=== PATIENT | female | born 1955 | race Caucasian/White ===

== ENCOUNTER 2019-09-01 08:39 | Day surgery (SDC) | payer MEDICARE ==
[~2019-09-01] VITALS: Ht 165.1 cm; Wt 71.9 kg
[~2019-09-01 08:39] MED LIST: IBUP200 PO; TIZA4 PO; TRAM50 PO
== END 2019-09-01 10:32 | disposition home or self-care (01) ==
LOC: ORSCSDS 08:39
PROVIDERS: Internal Medicine Gastroenterology
PROC: 0DJD8ZZ Inspection of Lower Intestinal Tract, Via Natural or Artificial Opening Endoscopic (ICD-10-PCS; principal; 2019-09-01 10:00)
DX: Z12.11 Encounter for screening for malignant neoplasm of colon (principal); K57.30 Diverticulosis of large intestine without perforation or abscess without bleeding; K64.8 Other hemorrhoids; Z87.891 Personal history of nicotine dependence
CPT/HCPCS: J2704; J7120

== ENCOUNTER → 2022-05-21 | Outpatient (CLI) | payer MEDICARE ==
[~2022-05-21] MED LIST changes: +ACET325 PO; +FISH OIL 1,2001 EAC7 PO; +HYDR1TAB94 PO; +NAPR220 PO; +ONDA4ODT MM
[2022-05-21 16:51] LABS: Albumin/Globulin Ratio 1.4 (0.8-1.8); Bilirubin, Total 0.3 mg/dL (0.1-1.0); Bun/Creatinine Ratio 22.7 (12.0-20.0); Calcium, Blood 9.4 mg/dL (8.5-10.1); Creatinine, Blood 0.88 mg/dL (0.40-1.00); Globulin, Blood 2.8 g/dL (2.2-4.0); Potassium, Blood 4.1 mmol/L (3.5-5.5); Total Protein, Blood 6.8 g/dL (6.4-8.2)
== END | disposition home or self-care (01) ==
LOC: LAB 12:00 → LAB SHORT 12:00
PROVIDERS: Hospitalist
DX: R00.1 Bradycardia, unspecified (principal)
CPT/HCPCS: 80053

== ENCOUNTER → 2024-09-08 | Outpatient (CLI) | payer MEDICARE | END | disposition home or self-care (01) | LOC: LAB 13:37 → LAB SHORT 13:37 | DX: R35.0 Frequency of micturition (principal) | CPT/HCPCS: 87077; 87086; 87186 ==

== ENCOUNTER → 2025-03-23 | Outpatient (CLI) | payer MEDICARE ==
[2025-03-23 17:02] LABS: Anion Gap 4 mmol/L (3-11); Blood Urea Nitrogen 17 mg/dL (8-24); CHOL/HDL RATIO 2.5; CO2, Blood 28 mmol/L (21-32); Calcium, Blood 8.8 mg/dL (8.5-10.1); Chloride, Blood 108 mmol/L (98-108); Cholesterol 221 mg/dL (50-200); Creatinine, Blood 0.88 mg/dL (0.40-1.00); Glucose, Blood 88 mg/dL (70-99); HDL Cholesterol 87 mg/dL (>39); LDL/HDL RATIO 1.4; Low Density Lipoprotein Chol 121 mg/dL (0-110); Potassium, Blood 4.2 mmol/L (3.5-5.5); Sodium, Blood 136 mmol/L (136-145); Triglycerides 67 mg/dL (30-160); Very Low Density Lipoprot Chol 13 mg/dL (6-32)
== END ==
LOC: LAB SHORT 08:55 → LAB 08:55
PROVIDERS: Hospitalist
DX: I11.0 Hypertensive heart disease with heart failure (principal); I50.9 Heart failure, unspecified
CPT/HCPCS: 80048; 80061